=== PATIENT | male | born 1960 | race Caucasian/White ===

== ENCOUNTER 2016-06-11 07:25 | Emergency (ER) | payer BC ==
[~2016-06-11] VITALS: Ht 198.1 cm; Wt 129.3 kg
[~2016-06-11 07:25] MED LIST: ATOR10TA PO; ATORVASTATIN CA80 MG PO; Amoxicillin/Potassium Clav PO; BACL20TA PO; BYSTOLIC10 MG PO; BYSTOLIC5 MG PO; CYCL10TA2 PO; ESCI20TA PO; FURO-68 PO; HYDR-2666 PO; HYDR-2672 PO; HYDR-971 PO; HYDR25TA9 PO; INSU100I13 SQ; LEVO200T5 PO; LEVO25TA2 PO; METF500T PO; OXYC-323 PO
[2016-06-11 07:35] VITALS: BP 168/95
--- NOTE | 2016-06-11 07:48 | ED.ADGEN ---
Past Medical History Past Medical History: Diabetes-Type II, High Cholesterol, Hypertension Additional Past Medical Histor: Graves disease Past Surgical History: Appendectomy, Tonsillectomy, Other Additional Past Surgical Histo: Colon resection Alcohol Use: None Drug Use: None Adult General Chief Complaint Chief Complaint: LOWER BACK PAIN OR INJURY HPI HPI Patient is a 56 year old and, history of hypertension, diabetes mellitus which is insulin controlled, hyperlipidemia, Graves' disease, and chronic back pain, who presents to the emergency department with complaint of exacerbation of his lower back pain with radiculopathy. Patient states that he believes he may have twisted his back yesterday, around 12 PM, has been experiencing pain in the left side of his lower back radiating into his left lower extremity since that time. He denies any other injuries, denies any weakness emesis or tingling, any difficulties with bladder or bowel control, or any changes from his typical chronic back pain. Patient is generally managed by his primary care provider Dr. Harris, using muscle relaxers and anti-inflammatory medications. He has not taken any medication at home at this time, states that usually Toradol and Norflex are effective in controlling his symptoms. He denies any urinary, respiratory or cardiac complaints, no fevers or chills. States blood sugars are running in the mid 100s. Denies any other complaints. Review of Systems Review of Systems Constitutional: Denies fever or chills. [] Eyes: Denies change in visual acuity. [] HENT: Denies nasal congestion or sore throat. [] Respiratory: Denies cough or shortness of breath. [] Cardiovascular: Denies chest pain or edema. [] GI: Denies abdominal pain, nausea, vomiting, bloody stools or diarrhea. [] : Denies dysuria. [] Musculoskeletal: Left lower back pain radiating to left lower extremity. Integument: Denies rash. [] Neurologic: Denies headache, focal weakness or sensory changes. [] Endocrine: Denies polyuria or polydipsia. [] Lymphatic: Denies swollen glands. [] Psychiatric: Denies depression or anxiety. [] Current Medications Current Medications Current Medications Medications (Trade) Dose Ordered Sig/Elena Start Time Stop Time Status Last Admin Dose Admin Ketorolac Tromethamine (Toradol Im) 30 mg 1X ONCE 06/11/16 08:00 06/11/16 08:01 DC Orphenadrine Citrate (Norflex) 60 mg 1X ONCE 06/11/16 08:00 06/11/16 08:01 DC Allergies Allergies Allergies Coded Allergies Type Severity Reaction Last Updated Verified No Known Drug Allergies 08/19/15 No Physical Exam Physical Exam Constitutional: Well developed, well nourished, no acute distress, non-toxic appearance. [] HENT: Normocephalic, atraumatic, bilateral external ears normal, oropharynx moist, no oral exudates, nose normal. [] Eyes: PERRLA, EOMI, conjunctiva normal, no discharge. [] Neck: Normal range of motion, no tenderness, supple, no stridor. [] Cardiovascular:Heart rate regular rhythm, no murmur, S1, S2, rubs or gallops. [] Lungs & Thorax: Bilateral breath sounds clear to auscultation, no wheezing, rhonchi, rales. No chest wall crepitus or tenderness. [] Abdomen: Bowel sounds normal, soft, no rebound, rigidity, no guarding, no tenderness, no masses, no pulsatile masses. [] Skin: Warm, dry, no erythema, no rash. [] Back: No midline tenderness or deformities, patient with left-sided paraspinal muscle tissue tension and tenderness to palpation, tenderness in the left sided paraspinal muscles, with pain radiating in a sciatic pattern to the left lower extremity, no step-offs, no CVA tenderness. [] Extremities: No tenderness, no cyanosis, no clubbing, ROM intact, no edema. [] Neurologic: Alert and oriented X 3, normal motor function, normal sensory function, no focal deficits noted. [] Psychologic: Affect normal, judgement normal, mood normal. [] Current Patient Data Vital Signs Vital Signs Date Time Temp Pulse Resp B/P Pulse Ox O2 Delivery O2 Flow Rate FiO2 06/11/16 07:35 98.2 85 16 98 Room Air 98.2 Lab Values Laboratory Tests Test 06/11/16 07:45 Urine Collection Type Unknown Urine Color Yellow Urine Clarity Clear Urine pH 6.5 Urine Specific Lee <=1.005 Urine Protein Negativemg/dL (NEG-TRACE) Urine Glucose (UA) Negativemg/dL (NEG) Urine Ketones (Stick) Negativemg/dL (NEG) Urine Blood Negative (NEG) Urine Nitrite Negative (NEG) Urine Bilirubin Negative (NEG) Urine Urobilinogen Dipstick 0.2mg/dL (0.2 mg/dL) Urine Leukocyte Esterase Negative (NEG) Urine RBC Rare/HPF (0-2) Urine WBC Rare/HPF (0-4) Urine Squamous Epithelial Cells None/LPF Urine Bacteria Few/HPF (0-FEW) EKG EKG Not indicated. [] Radiology/Procedures Radiology/Procedures Not indicated. [] Course & Med Decision Making Course & Med Decision Making Pertinent Labs and Imaging studies reviewed. (See chart for details) Patient ambulating without difficulty upon entering the ED, did drive himself to the emergency department. With a normal neurologic examination, noted to have mild tissue tension and muscle spasm in the left paraspinal muscles and in the left piriformis. There is no change for the patient's reports from his previous episodes of chronic back pain. Patient was written for Toradol and Norflex after discussion, however he did drive himself here today and states that he cannot get a ride home, has not taken any of his Flexeril she states she does have at home. 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 Patient instructed to use his home Flexeril. He did request hydrocodone in the ED additionally, which she typically receives from his primary care provider Dr. Harris, and was instructed to follow-up with Dr. Harris for narcotics, at this time based on complain examination, will stick to the aunt inflammatory medication muscle relaxants. Patient was agreeable with this plan. Urine was grossly normal. Urinalysis revealed rare RBCs and WBCs, no evidence of infection , instructed to follow-up with his primary care provider for additional evaluation, and return to the ED for concerning symptoms as discussed. Patient ambulating without difficulty upon exiting the emergency department. Dragon Disclaimer Dragon Disclaimer This electronic medical record was generated, in whole or in part, using a voice recognition dictation system. Departure Impression: Primary Impression: Chronic lower back pain Disposition: HOME, SELF-CARE Condition: IMPROVED ADRIEN PRUITT DO Jun 11, 2016 07:48
[2016-06-11 07:54] LABS: BILIRUBIN,URINE NEGATIVE (NEG); GLUCOSE,URINE NEGATIVE (NEG); NITRITE,URINE NEGATIVE (NEG); PH,URINE 6.5; PROTEIN,URINE NEGATIVE (NEG-TRACE); UROBILINOGEN,URINE 0.2 mg/dL (0.2 mg/dL)
[2016-06-11] MEDS ORDERED: ORPHENADRINE CITRATE 60 MG/2 ML VIAL. IM ONE (08:00)
[2016-06-11] MEDS ORDERED: KETOROLAC TROMETHAMINE 60 MG/2 ML INJ. IM ONE (08:00)
[2016-06-11 08:02] LABS: BACTERIA,URINE FEW /HPF (0-FEW); RBC,URINE RARE /HPF (0-2); WBC,URINE RARE /HPF (0-4)
== END 2016-06-11 09:13 | disposition home or self-care (01) ==
LOC: ER 07:25
DX: G89.29 Other chronic pain (principal); M54.5 Low back pain; E78.00 Pure hypercholesterolemia, unspecified; E11.9 Type 2 diabetes mellitus without complications; I10 Essential (primary) hypertension; E78.5 Hyperlipidemia, unspecified
CPT/HCPCS: 81001; 96372; 99284; J1885; J2360